=== PATIENT | male | born 1965 | race Caucasian/White ===

== ENCOUNTER 2020-10-12 22:38 | Observation (INO) ==
[2020-10-12] MEDS ORDERED: Dexamethasone 4 MG/ML VIAL IVP ONE (23:03)
[2020-10-12] MEDS ORDERED: Isovue-370 500 ML BOTTLE IVP ONE (23:06)
[2020-10-12 23:16] LABS: Red Cell Distribution Width 11.1 % (11.5-14.5)
[2020-10-12 23:18] LABS: Basophils % 0.3 %; Hematocrit 41.4 % (37.5-50.1); Hemoglobin 14.6 g/dL (12.9-16.9); Immature Granulocytes % 0.5 % (0-4); Immature Platelets 8.3 % (1.1-6.1); Lymphocytes # 1.4 K/mcL (0.6-4.6); Lymphocytes % 38.5 %; Mean Corpuscular HGB Conc 35.3 g/dL (31.6-35.5); Mean Corpuscular Hemoglobin 31.4 pg (28.0-33.3); Mean Platelet Volume 10.7 fL (9.4-12.4); Monocytes # 0.3 K/mcL (0.0-1.3); Monocytes % 8.9 %; Neutrophils # 1.9 K/mcL (1.6-8.9); Red Blood Count 4.65 M/mcL (4.19-5.50); Segmented Neutrophils % 51.8 %; White Blood Count 3.7 K/mcL (4.3-11.1)
[2020-10-12] MEDS ORDERED: *HR* FentaNYL (PF) 100 MCG/2 ML VIAL IVP ONE (23:19)
[2020-10-12 23:25] LABS: INR 1.1; Prothrombin Time 12.9 Seconds (9.4-12.1)
[2020-10-12 23:27] LABS: Activated Partial Thrombo Time 26.3 Seconds (26.0-36.0)
[2020-10-12 23:35] LABS: Platelet Count 75 K/mcL (140-400)
[2020-10-12 23:41] LABS: Alanine Aminotransferase 26 Units/L (7-52); Albumin 3.7 g/dL (3.5-5.7); Albumin/Globulin Ratio 1.4 (1.1-2.2); Alkaline Phosphatase 59 Units/L (34-104); Aspartate Amino Transferase 60 Units/L (13-39); BUN/Creatinine Ratio 29 (6-26); Bilirubin,Direct 0.3 mg/dL (0.0-0.2); Bilirubin,Indirect 0.6 mg/dL (0.0-1.0); Bilirubin,Total 0.9 mg/dL (0.3-1.0); Blood Urea Nitrogen 18 mg/dL (6-20); C-Reactive Protein 7 mg/L (Less than 10); Calcium 8.1 mg/dL (8.6-10.3); Carbon Dioxide 31 mEq/L (23-29); Chloride 96 mEq/L (98-107); Globulin 2.6 g/dL (2.4-3.5); Glucose 89 mg/dL (70-105); Lactate Dehydrogenase 371 Units/L (140-271); Magnesium 1.9 mg/dL (1.6-2.6); Osmolality,Calculated 281 (280-300); Phosphorous 2.4 mg/dL (2.7-4.5); Potassium 3.3 mEq/L (3.5-5.1); Sodium 135 mEq/L (136-145); Total Protein 6.3 g/dL (6.4-8.9); Troponin I < 0.03 ng/mL (< 0.04); eGFR For African Americans > 60 (> 60); eGFR For Non-African Americans > 60 (> 60)
[2020-10-12] MEDS ORDERED: 0.9 % Sodium Chloride 1,000 ML IVC ONE (23:54)
[2020-10-13] LABS: Ferritin > 1500 ng/mL (20-250)
[2020-10-13] MEDS ORDERED: Potassium Chloride Elixir 20 MEQ/15 ML UDC PO ONE
[2020-10-13] MEDS ORDERED: 0.9 % Sodium Chloride 1,000 ML IVC ONE ×2 (00:01)
[2020-10-13] MEDS ORDERED: Calcium Gluconate 1gm/50mL 1 GM/50 ML BAG IVPB ONE (00:01)
[2020-10-13] MEDS: 0.9 % Sodium Chloride 1,000 ML IVC SCH ×2 (01:57→13:30)
[2020-10-13 02:34] LABS: Adenovirus Not Detected (Not Detect); Coronavirus 229E Not Detected (Not Detect); Coronavirus HKU1 Not Detected (Not Detect); Coronavirus NL63 Not Detected (Not Detect); Coronavirus OC43 Not Detected (Not Detect)
[2020-10-13 02:35] LABS: Bordetella Pertussis Not Detected (Not Detect); Chlamydophila pneumoniae Not Detected (Not Detect); Human Metapneumovirus Not Detected (Not Detect); Human Rhinovirus/Enterovirus Not Detected (Not Detect); Influenza A Subtype 2009 H1 Not Detected (Not Detect); Influenza B Not Detected (Not Detect); Mycoplasma pneumoniae Not Detected (Not Detect); Parainfluenza Virus 1 Not Detected (Not Detect); Parainfluenza Virus 2 Not Detected (Not Detect); Parainfluenza Virus 3 Not Detected (Not Detect); Parainfluenza Virus 4 Not Detected (Not Detect); Respiratory Syncytial Virus Not Detected (Not Detect)
[2020-10-13 02:38] LABS: SARS-CoV-2 DETECTED (Not Detect)
[2020-10-13] MEDS ORDERED: Ondansetron 4 MG/2 ML VIAL IVP PRN (02:43)
[2020-10-13] MEDS ORDERED: Naloxone 0.4 MG/ML INJ IVP PRN (02:43)
[2020-10-13 05:23] LABS: Hematocrit 39.3 % (37.5-50.1); Hemoglobin 13.3 g/dL (12.9-16.9); Mean Corpuscular HGB Conc 33.8 g/dL (31.6-35.5); Mean Corpuscular Volume 91.6 fL (83.0-100.0); Mean Platelet Volume 11.4 fL (9.4-12.4); Red Blood Count 4.29 M/mcL (4.19-5.50); Red Cell Distribution Width 11.2 % (11.5-14.5); White Blood Count 2.6 K/mcL (4.3-11.1)
[2020-10-13 05:24] LABS: Platelet Count 69 K/mcL (140-400)
[2020-10-13] MEDS: *HR* Enoxaparin 40 MG/0.4 ML SYRINGE SQ SCH (05:25)
[2020-10-13 05:42] LABS: BUN/Creatinine Ratio 28 (6-26); Blood Urea Nitrogen 15 mg/dL (6-20); C-Reactive Protein 6 mg/L (Less than 10); Calcium 7.8 mg/dL (8.6-10.3); Carbon Dioxide 28 mEq/L (23-29); Chloride 104 mEq/L (98-107); Glucose 140 mg/dL (70-105); Lactate Dehydrogenase 326 Units/L (140-271); Osmolality,Calculated 287 (280-300); Potassium 4.1 mEq/L (3.5-5.1); Sodium 137 mEq/L (136-145); eGFR For African Americans > 60 (> 60); eGFR For Non-African Americans > 60 (> 60)
[2020-10-13 06:01] LABS: Ferritin 1390 ng/mL (20-250)
[2020-10-13] MEDS ORDERED: *HR* Buprenorphine HCl 2 MG SUBLINGUAL TABLET SL SCH (06:30)
[2020-10-13] MEDS ORDERED: Acetaminophen 325 MG TABLET PO PRN (08:33)
[2020-10-13] MEDS: Dexamethasone 4 MG/ML VIAL IVP SCH (09:15)
[2020-10-13] MEDS: Ipratropium 1 PUFF INHALER IH SCH ×5 (10:00→23:02)
[2020-10-13] MEDS ORDERED: Benzonatate 100 MG CAPSULE PO PRN (12:03)
[2020-10-13] MEDS: *HR* Buprenorphine HCl 2 MG SUBLINGUAL TABLET SL SCH (20:23)
[2020-10-14 03:14] LABS: Hematocrit 39.2 % (37.5-50.1); Hemoglobin 13.5 g/dL (12.9-16.9); Immature Granulocytes % 0.4 % (0-4); Lymphocytes # 0.6 K/mcL (0.6-4.6); Lymphocytes % 8.1 %; Mean Corpuscular HGB Conc 34.4 g/dL (31.6-35.5); Mean Corpuscular Hemoglobin 31.2 pg (28.0-33.3); Mean Corpuscular Volume 90.5 fL (83.0-100.0); Mean Platelet Volume 11.2 fL (9.4-12.4); Monocytes # 0.4 K/mcL (0.0-1.3); Monocytes % 5.3 %; Neutrophils # 6.2 K/mcL (1.6-8.9); Platelet Count 104 K/mcL (140-400); Red Blood Count 4.33 M/mcL (4.19-5.50); Red Cell Distribution Width 11.2 % (11.5-14.5); Segmented Neutrophils % 86.2 %
[2020-10-14] MEDS: Ipratropium 1 PUFF INHALER IH SCH ×3 (03:14→11:14)
[2020-10-14 03:15] LABS: White Blood Count 7.2 K/mcL (4.3-11.1)
[2020-10-14 03:43] LABS: Alanine Aminotransferase 22 Units/L (7-52); Albumin 3.4 g/dL (3.5-5.7); Albumin/Globulin Ratio 1.3 (1.1-2.2); Alkaline Phosphatase 63 Units/L (34-104); Aspartate Amino Transferase 43 Units/L (13-39); BUN/Creatinine Ratio 25 (6-26); Bilirubin,Total 0.5 mg/dL (0.3-1.0); Blood Urea Nitrogen 13 mg/dL (6-20); C-Reactive Protein < 5 mg/L (Less than 10); Calcium 8.4 mg/dL (8.6-10.3); Carbon Dioxide 28 mEq/L (23-29); Chloride 103 mEq/L (98-107); Globulin 2.6 g/dL (2.4-3.5); Glucose 128 mg/dL (70-105); Lactate Dehydrogenase 306 Units/L (140-271); Osmolality,Calculated 292 (280-300); Potassium 3.5 mEq/L (3.5-5.1); Sodium 140 mEq/L (136-145); eGFR For African Americans > 60 (> 60); eGFR For Non-African Americans > 60 (> 60)
[2020-10-14 03:48] LABS: Ferritin 1185 ng/mL (20-250)
[2020-10-14] MEDS: *HR* Enoxaparin 40 MG/0.4 ML SYRINGE SQ SCH (05:12)
[2020-10-14 07:03] VITALS: BP 105/51
[2020-10-14] MEDS: *HR* Buprenorphine HCl 2 MG SUBLINGUAL TABLET SL SCH (08:47)
[2020-10-14] MEDS: Dexamethasone 4 MG/ML VIAL IVP SCH (08:48)
[2020-10-14] MEDS ORDERED: Cholecalciferol (D-3) 1,000 UNIT (25MCG) TABLET PO SCH (09:00)
[2020-10-14] MEDS ORDERED: Buprenorphine Hcl/Naloxone Hcl [Suboxone 8 Mg-2 Mg] SL SCH (09:00)
== END 2020-10-14 14:13 | disposition home or self-care (01) ==
LOC: EMEROOARM 22:38 → 3BNU 22:38
PROVIDERS: ADMIT Student in an Organized Health Care Education/Training Program; ATTEND Student in an Organized Health Care Education/Training Program